=== PATIENT | female | born 1965 | race Caucasian/White ===

== ENCOUNTER 2020-07-30 10:44 | Day surgery (SDC) | payer MEDICAID ==
[~2020-07-30 10:44] MED LIST: Metoclopramide 10 MG/2 ML SDV IV PRN; Sodium Chloride 0.9% 1,000 ML IV SCH
[2020-07-30] MEDS ORDERED: Propofol 1,000 MG/100 ML SDV ONE (13:30)
[2020-07-30 13:54] VITALS: BP 123/76; PULSE 71
--- NOTE | 2020-07-30 18:09 | OR ---
DATE OF OPERATION: 07/30/2020 SURGEON: Calderon Strong MD PREOPERATIVE DIAGNOSIS: Screening colonoscopy. POSTOPERATIVE DIAGNOSIS: Screening colonoscopy. PROCEDURE: Colonoscopy with polypectomy. ANESTHESIA: MAC. ESTIMATED BLOOD LOSS: Minimal. COMPLICATIONS: None. INDICATION FOR PROCEDURE: The patient is a 55-year-old female, here today for her first colonoscopy. She denies any family history of colon cancer. No change in bowel habits. DESCRIPTION OF PROCEDURE: Informed consent was obtained from the patient. The patient was taken to the operating room, placed on table in left lateral decubitus position. Monitored anesthesia care was administered. Digital rectal exam performed, it was normal. Colonoscope was then advanced through the anus, directed towards the cecum. Cecum was reached and identified by appendiceal orifice and ileocecal valve. Colonoscope was then slowly withdrawn. She did have a small sessile polyp at the proximal transverse colon. This was removed using hot snare polypectomy. Polyp was retrieved. The colonoscope was then further withdrawn. No other areas of ischemia or inflammation. No additional polyps or masses identified. Rectum was also otherwise unremarkable. Colonoscope was then fully withdrawn. FINDINGS: Transverse colon polyp. RECOMMENDATIONS: Would recommend repeat surveillance colonoscopy in 5 years. We will follow up on pathology results. NICKOLAS/PASQUALE /[id number]
== END 2020-07-30 14:45 | disposition home or self-care (01) ==
LOC: LB.SDS 10:44
PROVIDERS: ATTEND Surgery
DX: Z12.11 Encounter for screening for malignant neoplasm of colon (principal); D12.3 Benign neoplasm of transverse colon; I10 Essential (primary) hypertension; K21.9 Gastro-esophageal reflux disease without esophagitis; Z88.0 Allergy status to penicillin; Z79.899 Other long term (current) drug therapy; Z87.891 Personal history of nicotine dependence
CPT/HCPCS: 88305; J2704; J7030

== ENCOUNTER 2023-04-22 14:54 | Emergency (ER) | payer MEDICAID ==
[2023-04-22] MEDS ORDERED: Ketorolac 30 MG/ML SDV IM ONE (15:27)
[2023-04-22 15:29] VITALS: BP 153/99; PULSE 112
[2023-04-22] MEDS ORDERED: Ketorolac 30 MG/ML SDV ONE (15:31)
[2023-04-22 15:39] LABS: APPEARANCE,URINE CLOUDY (CLEAR); BILIRUBIN,URINE NEGATIVE (NEGATIVE); COLOR,URINE YELLOW; GLUCOSE,URINE NEGATIVE (NEGATIVE); KETONES,URINE NEGATIVE (NEGATIVE); LEUKOCYTE ESTERASE,URINE LARGE (NEGATIVE); NITRITE,URINE NEGATIVE (NEGATIVE); OCCULT BLOOD,URINE SMALL (NEGATIVE); PROTEIN,URINE 30 mg/dL (NEGATIVE); UROBILINOGEN,URINE 0.2 E.U./dL (0.2-1.0)
[2023-04-22 15:40] LABS: BASOPHILS ABSOLUTE AUTO 0.03 K/uL (0.02-0.10); BASOPHILS PERCENT AUTO 0.3 % (0.0-0.5); EOSINOPHILS ABSOLUTE AUTO 0.05 K/uL (0.04-0.40); EOSINOPHILS PERCENT AUTO 0.6 % (1.0-5.0); HEMATOCRIT 39.4 % (37.0-47.0); HEMOGLOBIN 13.8 g/dL (11.5-16.5); LYMPHOCYTES ABSOLUTE AUTO 1.43 K/uL (1.50-4.00); LYMPHOCYTES PERCENT AUTO 16.5 % (20.0-40.0); MEAN CORPUSCULAR HEMOGLOBIN 36.9 pg (27.0-32.0); MEAN CORPUSCULAR VOLUME 105 fL (76-96); MEAN PLATELET VOLUME 8.9 fL (6.0-10.0); MONOCYTES ABSOLUTE AUTO 0.57 K/uL (0.20-0.80); MONOCYTES PERCENT AUTO 6.6 % (3.0-10.0); NEUTROPHILS ABSOLUTE AUTO 6.57 K/uL (2.00-7.50); PLATELET COUNT,PLT 170 K/uL (150-500); RED BLOOD CELL COUNT 3.74 M/uL (3.80-5.80); RED CELL DISTRIBUTION WIDTH 13.6 % (11.0-16.0); WHITE BLOOD CELL COUNT,WBC 8.7 K/uL (4.0-11.0)
[2023-04-22 15:44] LABS: BACTERIA,URINE MANY /HPF; SQUAMOUS EPITHELIAL CELLS,UR FEW /HPF; WBC,URINE >100 /HPF
[2023-04-22] MEDS ORDERED: Nitrofurantoin Macrocrystal 50 MG Cap PO ONE (15:47)
[2023-04-22] MEDS ORDERED: Phenazopyridine 100 MG Tab PO ONE (15:50)
[2023-04-22 15:52] LABS: MAGNESIUM 2.1 mg/dL (1.8-2.4)
[2023-04-22] MEDS ORDERED: Potassium Chloride Riders 50 ML ONE (16:02)
[2023-04-22 16:03] LABS: A/G RATIO 0.8 (0.8-2.0); ALBUMIN 3.8 g/dL (3.4-5.0); ANION GAP 13.9 mmol/L (5.0-15.0); BILIRUBIN TOTAL 0.7 mg/dL (0.0-1.0); BUN/CREATININE RATIO 17.5 (6-25); CALCIUM 9.2 mg/dL (8.5-10.1); CARBON DIOXIDE,CO2 26.9 mmol/L (21.0-32.0); CREATININE 0.97 mg/dL (0.55-1.02); EST CRCL DRUG DOSING (CG) 60.62 mL/min; POTASSIUM,K 3.8 mmol/L (3.5-5.1); PROTEIN TOTAL,TP 8.5 g/dL (6.4-8.2)
== END 2023-04-22 16:07 | disposition home or self-care (01) ==
LOC: LB.ED 14:54
DX: N30.01 Acute cystitis with hematuria (principal); Z79.899 Other long term (current) drug therapy; Z88.0 Allergy status to penicillin
CPT/HCPCS: 36415; 80053; 81001; 83690; 83735; 85025; 87086; 96372; 99284; A9270; J1885